=== PATIENT | female | born 1945 | race Caucasian/White ===

== ENCOUNTER 2017-10-23 08:56 | Day surgery (SDC) | payer MEDICARE, BC ==
[2017-10-23] MEDS ORDERED: Lactated Ringers 1,000 ML IV SCH (09:00)
[2017-10-23] MEDS ORDERED: Sodium Chloride 0.9% 5 ML Syringe FLUSH PRN (09:00)
[2017-10-23] MEDS ORDERED: Propofol 200 MG/20 ML SDV ONE ×2 (09:10→10:28)
[2017-10-23] MEDS ORDERED: fentaNYL 100 MCG/2 ML SDV ONE (09:10)
[2017-10-23] MEDS ORDERED: Midazolam 1 MG/ML 2 ML SDV ONE (09:10)
[2017-10-23] MEDS ORDERED: EPINEPHrine 1:10,000 1 MG/10 ML Syringe ONE (09:56)
[2017-10-23] MEDS ORDERED: fentaNYL 100 MCG/2 ML SDV IV ONE (10:00)
[2017-10-23] MEDS ORDERED: Midazolam 1 MG/ML 2 ML SDV IV ONE (10:00)
[2017-10-23] MEDS ORDERED: Propofol 200 MG/20 ML SDV IV ONE (10:00)
--- NOTE | 2017-10-23 10:48 | PCM.OPNOTE ---
- General Post-Op/Procedure Note Date of Surgery/Procedure: 10/23/17 Operative Procedure(s): Colonoscopy for positive Cologuard.test. Pre Op Diagnosis: As above Anesthesia Technique: MAC Primary Surgeon: Jody Kunz Complications: None Condition: Good Free Text/Narrative:: INFORMED CONSENT: Patient is here today for elective colonoscopy. All aspects of this procedure have been discussed with the patient. All possible complications also, including possibility of perforation, infection, pain, bleeding and unknown complications. In the event of perforation patient may need to have abdominal exploration, colon resection, colostomy and even was discussed. Anesthetic complications were handled by anesthesia department. The patient understands fully well. Patient did not have any further questions for me at the end of my interview. The patient wishes for me to proceed. PREOPERATIVE DIAGNOSIS/INDICATIONS: [Positive Cologuard test.] POSTOPERATIVE DIAGNOSIS: [Normal colonoscopy] INSTRUMENT USED: Olympus videocolonoscope. ASA CLASSIFICATION: [2] ANESTHESIA: Continuous EKG, oximetry and intermittent blood pressure and respiratory monitoring were performed throughout the procedure. IV Versed and Fentanyl were administered. PROCEDURE PERFORMED: Colonoscopy POSITIONS OF PATIENT: Left lateral. RECTUM: Normal. SIGMOID COLON: Normal. DESCENDING COLON: Normal. SPLENIC FLEXURE: Normal. TRANSVERSE COLON: Normal. HEPATIC FLEXURE: Normal. ASCENDING COLON: Normal. CECUM: Normal. ILEOCECAL VALVE: Normal most likely, but could not see this area clearly. BIOPSY: None. TOLERANCE: Excellent. COMPLICATIONS: None.
== END 2017-10-23 11:50 | disposition home or self-care (01) ==
LOC: KA.SDS 08:56
PROVIDERS: ATTEND Family Medicine
DX: Z15.09 Genetic susceptibility to other malignant neoplasm (principal); I10 Essential (primary) hypertension; G56.01 Carpal tunnel syndrome, right upper limb; M06.9 Rheumatoid arthritis, unspecified; E78.5 Hyperlipidemia, unspecified; G25.81 Restless legs syndrome; Z79.82 Long term (current) use of aspirin; Z79.1 Long term (current) use of non-steroidal anti-inflammatories (NSAID); Z79.899 Other long term (current) drug therapy
CPT/HCPCS: 45378; J2250; J2704; J3010; J7120